=== PATIENT | male | born 1965 | race Caucasian/White ===

== ENCOUNTER 2017-08-13 14:48 | Emergency (ER) | payer OTHER ==
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
[2017-08-13 15:26] VITALS: BP 129/82; PULSE 62; TEMP 98.2; BMI 29.2
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
== END 2017-08-13 16:39 | disposition home or self-care (01) ==
LOC: JERFT 14:48
DX: Z04.1 Encounter for examination and observation following transport accident (principal); V59.59XA Passenger in pick-up truck or van injured in collision with other motor vehicles in traffic accident, initial encounter; Y92.414 Local residential or business street as the place of occurrence of the external cause; Y93.89 Activity, other specified; Y99.8 Other external cause status
CPT/HCPCS: 99281-25